=== PATIENT | female | born 1990 | race Caucasian/White ===

== ENCOUNTER 2017-07-07 13:19 | Emergency (ER) | payer MEDICAID, OTHER | END 2017-07-07 14:11 | disposition home or self-care (01) | LOC: E/R 14:11 | DX: M25.571 Pain in right ankle and joints of right foot (principal) | CPT/HCPCS: 73610; 73610-RT; 73630; 99283-25 ==

== ENCOUNTER 2017-10-04 15:56 | Emergency (ER) | payer BC, MEDICAID ==
[2017-10-04] MEDS: IBUPROFEN 800 MG TAB PO (16:25)
== END 2017-10-04 16:30 | disposition home or self-care (01) ==
LOC: FTE 15:56
DX: J02.9 Acute pharyngitis, unspecified (principal)
CPT/HCPCS: 99283